=== PATIENT | male | born 1940 ===

== ENCOUNTER → 2023-06-29 | Outpatient (CLI) | payer MEDICARE, OTHER ==
[~2023-06-29] VITALS: Ht 180.3 cm; Wt 86.8 kg
[~2023-06-29] MED LIST: METF-1211 PO; METO-558 PO; NIFE-129 PO
[2023-06-29 11:34] VITALS: BP 125/73; PULSE 62; RESP 22; TEMP 97.8; O2SAT 95
== END | disposition home or self-care (01) ==
LOC: SRCNTR 11:04
PROVIDERS: ATTEND Hospitalist
DX: I10 Essential (primary) hypertension (principal); I48.0 Paroxysmal atrial fibrillation; E11.9 Type 2 diabetes mellitus without complications; E78.5 Hyperlipidemia, unspecified; M19.90 Unspecified osteoarthritis, unspecified site
CPT/HCPCS: G0463